=== PATIENT | male | born 1945 | race Caucasian/White ===

== ENCOUNTER 2025-05-26 13:27 | Observation (INO) | payer MEDICARE ==
[2025-05-26 13:49] LABS: Glucose,Whole Blood 114 mg/dL (70-110)
--- NOTE | 2025-05-26 13:57 | ED ---
General Adult HPI - General Chief complaint: Dizziness Stated complaint: Dizziness Time Seen by Provider: 05/26/25 13:30 Source: patient, RN/MD, EMS, RN notes reviewed, old records reviewed Mode of arrival: EMS - History of Present Illness Initial comments: This is a 79-year-old male who presents to the emergency department from [facility]. Patient states he was driving this morning and he felt lightheaded and he did not feel he should be driving so he spoke with his girlfriend and she brought him to the hospital. At [facility] they noted he was bradycardic into the 40s and feeling lightheaded with those heart rates. Patient fluctuated up into the 70s down into the low 40s according to the EMS that brought him in from [facility]. I spoke with the [place] ER physician prior to transfer. Patient currently is in the emergency department is asymptomatic - Related Data Allergies Allergy/AdvReac Type Severity Reaction Status Date / Time No Known Allergies Allergy Verified 05/26/25 13:32 Review of Systems ROS Statement: Those systems with pertinent positive or pertinent negative responses have been documented in the HPI. ROS Other: All systems not noted in ROS Statement are negative. Past Medical History Past Medical History: Diabetes Mellitus, Hypertension, Thyroid Disorder History of Any Multi-Drug Resistant Organisms: None Reported Additional Past Surgical History / Comment(s): thyroid removed Past Psychological History: No Psychological Hx Reported Smoking Status: Former smoker Past Alcohol Use History: Occasional Past Drug Use History: None Reported General Exam - General Exam Comments Initial Comments: GENERAL: Patient is well-developed and well-nourished. Patient is nontoxic and well- hydrated and is in no acute distress. ENT: Neck is soft and supple. No significant lymphadenopathy is noted. Oropharynx is clear. Moist mucous membranes. Neck has full range of motion without eliciting any pain. EYES: The sclera were anicteric and conjunctiva were pink and moist. Extraocular movements were intact and pupils were equal round and reactive to light. Eyelids were unremarkable. PULMONARY: Unlabored respirations. Good breath sounds bilaterally. No audible rales rhonchi or wheezing was noted. CARDIOVASCULAR: There is a regular rate and rhythm without any murmurs gallops or rubs. Patient was shortly thereafter had a heart rate in the 40s ABDOMEN: Soft and nontender with normal bowel sounds. SKIN: Skin is clear with no lesions or rashes and otherwise unremarkable. NEUROLOGIC: Patient is alert and oriented x3. Cranial nerves II through XII are grossly intact. Motor and sensory are also intact. Normal speech, volume and content. Symmetrical smile. MUSCULOSKELETAL: Normal extremities with adequate strength and full range of motion. LYMPHATICS: No significant lymphadenopathy is noted PSYCHIATRIC: Normal psychiatric evaluation. Course Vital Signs 05/26/25 13:28 Temperature 98.0 F Pulse Rate 48 L Respiratory 18 Rate Blood Pressure 154/105 O2 Sat by Pulse 97 Oximetry Medical Decision Making - Medical Decision Making EKG is interpreted by myself. EKG shows a sinus rhythm at a rate of 62 bpm it is a regular [place] interval is 176 QRS is 150 QT interval is 423 QTc is 427. Patient's EKG shows no ST segment elevation or depression. Was pt. sent in by a medical professional or institution (, KATELYN, DIRECTOR BUSINESS DEVELOPMENT, urgent care, hospital, or detention...) When possible be specific @ -No Did you speak to anyone other than the patient for history (EMS, parent, family, police, friend...)? What history was obtained from this source @ -No Did you review nursing and triage notes (agree or disagree)? Why? @ -I reviewed and agree with nursing and triage notes Were old charts reviewed (outside hosp., previous admission, EMS record, old EKG, old radiological studies, urgent care reports/EKG's, detention records)? Report findings @ -No old charts were reviewed Differential Diagnosis? @ -Differential Dizziness: Benign paroxysmal positional Vertigo, Meniere's disease, otitis media, acoustic neuroma, vertebrobasilar insufficiency, cerebellar stroke, encephalitis, hypovolemic, arrhythmia, coronary artery syndrome, anemia, this is not meant to be an all-inclusive list EKG interpreted by me (3pts min.). @ -As above X-rays interpreted by me (1pt min.). @ -Patient CT interpreted by me (1pt min.). @ -None done U/S interpreted by me (1pt. min.). @ -None done What testing was considered but not performed or refused? (CT, X-rays, U/S, labs)? Why? @ -None What meds were considered but not given or refused? Why? @ -None Did you discuss the management of the patient with other professionals (professionals i.e. Dr., PA, DIRECTOR BUSINESS DEVELOPMENT, lab, RT, psych nurse, health social work professor, apartment leasing manager, teacher, industrial relations officer, embedded case manager)? Give summary @ -I spoke with Dr. Munoz he agreed to admit the patient but the patient reported bitting orders Was smoking cessation discussed for >3mins.? @ -No Was critical care preformed (if so, how long)? @ -No Were there social determinants of health that impacted care today? How? (Homelessness, low income, unemployed, alcoholism, drug addiction, transportation, low edu. Level, literacy, decrease access to med. care, snf, rehab)? @ -No Was there de-escalation of care discussed even if they declined (Discuss DNR or withdrawal of care, Hospice)? DNR status @ -No What co-morbidities impacted this encounter? (DM, HTN, Smoking, COPD, CAD, Cancer, CVA, ARF, Chemo, Hep., AIDS, mental health diagnosis, sleep apnea, morbid obesity)? @ -None Was patient admitted / discharged? Hospital course, mention meds given and route, prescriptions, significant lab abnormalities, going to OR and other pertinent info. @ -Patient came in and was intermittently bradycardic into the 40s. Patient was asymptomatic throughout his ED stay. I spoke with Dr. Munoz he agreed to admit the patient I did write admitting orders and consult cardiology Undiagnosed new problem with uncertain prognosis? @ -No Drug Therapy requiring intensive monitoring for toxicity (Heparin, Nitro, Insulin, Cardizem)? @ -No Were any procedures done? @ -No Diagnosis/symptom? @ -Symptomatic bradycardia Acute, or Chronic, or Acute on Chronic? @ -Acute Uncomplicated (without systemic symptoms) or Complicated (systemic symptoms)? @ -Complicated Side effects of treatment? @ -No Exacerbation, Progression, or Severe Exacerbation? @ -No Poses a threat to life or bodily function? How? (Chest pain, USA, MA, pneumonia, PE, COPD, DKA, ARF, appy, cholecystitis, CVA, Diverticulitis, Homicidal, Suicidal, threat to staff... and all critical care pts) @ -Yes this can lead to poor perfusion and endorgan dysfunction Disposition Clinical Impression: Symptomatic bradycardia Disposition: ADMITTED IP TO THIS [facility] Referrals: Nonstaff,Physician [Primary Care Provider] - 1-2 days Time of Disposition: 14:00
[2025-05-26] MEDS ORDERED: NALOXONE 0.4 MG/ML 1 ML VIAL IV PRN (16:16)
[2025-05-26] MEDS ORDERED: ACETAMINOPHEN TAB 325 MG TAB PO PRN (16:16)
[2025-05-26] MEDS ORDERED: DEXTROSE 50% SYRINGE 50 ML IVP PRN ×2 (16:29)
[2025-05-26 16:44] LABS: Glucose,Whole Blood 167 mg/dL (70-110)
[2025-05-26] MEDS: INSULIN LISPRO (HumaLOG) 100 UNIT/ML 10 mL VL SQ SCH ×2 (16:51→18:39)
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
[2025-05-26 21:51] LABS: Glucose,Whole Blood 102 mg/dL (70-110)
[2025-05-26] MEDS: PRAVASTATIN SODIUM 80 MG TAB PO SCH (22:33)
[2025-05-26] MEDS: INSULIN GLARGINE (LANTUS) 100 UNIT/ML SYR SQ SCH (22:34)
[2025-05-26 23:48] LABS: Bilirubin,Urine Negative (Negative); Blood,Urine Negative (Negative); Color,Urine Colorless; Glucose,Urine (UA) Negative (Negative); Ketones,Urine Negative (Negative); Leukocyte Esterase,Urine Negative (Negative); Nitrite,Urine Negative (Negative); PH, Urine 5.0 (5.0-8.0); Protein,Urine Negative (Negative); Specific Gravity,Urine 1.010 (1.001-1.035); Urobilinogen,Urine <2.0 mg/dL (<2.0)
[2025-05-27] MEDS: LEVOTHYROXINE 75 MCG TAB PO SCH (06:35)
[2025-05-27 07:04] LABS: Basophils # (A) 0.04 10*3/uL (0.00-0.10); Basophils % (A) 0.6 %; Eosinophils # (A) 0.19 10*3/uL (0.04-0.35); Eosinophils % (A) 2.6 %; HCT 40.3 % (39.6-50.0); HGB 13.5 g/dL (13.0-17.0); Lymphocytes # (A) 1.86 10*3/uL (0.90-5.00); Lymphocytes % (A) 25.7 %; MCH 28.2 pg (27.0-32.0); MCHC 33.5 g/dL (32.0-37.0); MCV 84.3 fL (80.0-97.0); Monocytes # (A) 0.78 10*3/uL (0.20-1.00); Monocytes % (A) 10.8 %; Neutrophils # (A) 4.33 10*3/uL (1.80-7.70); Neutrophils % (A) 59.7 %; Platelet Count 256 10*3/uL (140-440); RBC 4.78 10*6/uL (4.40-5.60); RDW 13.6 % (11.5-14.5); WBC 7.24 10*3/uL (4.50-10.00)
[2025-05-27 07:26] LABS: Glucose,Whole Blood 97 mg/dL (70-110)
[2025-05-27 07:58] LABS: African American GFR (CKD) 61 (>60 ml/min/1.73 sqM); Anion Gap 7 mmol/L; Blood Urea Nitrogen 29 mg/dL (9-20); Calcium 9.7 mg/dL (8.4-10.2); Carbon Dioxide 24 mmol/L (22-30); Chloride 110 mmol/L (98-107); Glucose 102 mg/dL (74-99); Magnesium 2.1 mg/dL (1.6-2.3); Non-African American GFR(CKD) 53 (>60 ml/min/1.73 sqM); Potassium 4.7 mmol/L (3.5-5.1); Sodium 141 mmol/L (137-145)
[2025-05-27] MEDS: MULTIVITAMINS, THERA 1 EACH TAB PO SCH (08:40)
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
[2025-05-27 11:59] LABS: Glucose,Whole Blood 109 mg/dL (70-110)
--- NOTE | 2025-05-27 17:14 | P.PN ---
Subjective Progress Note Date: 05/27/25 Hospital Course: Mr. Connor is a 79 y/u M with PMHx of DMT2, HLD, COPD, emphysema, asthma and arthritis who presented to the ED with lightheadedness and dizziness. Pt states the lightheadedness began 1-2 months prior however today it occurred while he was sitting and driving which has not happened before, prompting him to come to the ED at [facility]. At [facility], pt was noted to be bradycardic into the 40s and then fluctuating back to the 70s and was transferred to [facility]. In ED, pt reports unsteady gait with the lightheadedness occurs and notes it will last 1-2 minutes. He notes sitting down/resting will help when symptoms occur. He states he will have lightheadedness approximately 5-10 times daily. ED findings from [place] show Troponin I <0.010, TSH 0.951, mag 2.05, phos 3.43, WBC 7.31, hgb 12.9, Na 141. K 4.9, BUN 33.9, creatinine 1.44. [place] CXR shows no focal consolidation, no large pleural effusion, no pneumothorax, elevation of right hemidiaphragm w/ associate compressive atelectasis, slightly hyperinflation bilaterally and increased vascular prominence. In [facility] ED, EKG showed sinus arrhythmia at 62 bpm, prolonged QRS, axis undetermined, RBBB. Possible sinus exit block. Cardiology consulted. Subjective: Patient seen and examined at bedside. No acute events overnight. Pt states he has not experienced any lightheadedness or dizziness last night or this morning. He states he did ambulate to the restroom without any symptoms. He denies CP, SOB, SAMS, palpitations. Pertinent positives and negatives as discussed above, a complete review of systems was performed and all other systems are negative. Vitals: Signs Reviewed Physical Exam: General: nontoxic, no distress, appears at stated age Derm: warm, dry, intact Head: atraumatic, normocephalic, symmetric Eyes: EOMI, anicteric sclera Mouth: no lip lesion, mucus membranes moist Cardiovascular: S1 S2 reg, no murmur, rubs, or gallops Lungs: CTA bilateral, no rhonchi, no rales, no accessory muscle use Abdominal: soft, non-tender to palpation, no appreciable organomegaly Extremities: no gross muscle atrophy, no edema, no contractures Neuro: Alert, Oriented, CNII-XII grossly intact, gait normal Psych: well appearing, appropriate affect Data Received Today: Pertinent Labs: CBC unremarkable. BUN 29, Cr 1.29, A1c 6.8, mag 2.1, TSH 0.937, troponin I <0.012. UA unremarkable. Imaging: Echo pending. Assessment and Plan: Bradycardia with presyncope, dizziness and lightheadedness - EKG reviewed: Sinus arrhythmia at 62 bpm, prolonged QRS, axis undetermined, RBBB. Possible sinus exit block - CXR ([facility]): No focal consolidation, no large pleural effusion, no pneumothorax. Elevation of right hemidiaphragm w/ associate compressive atelectasis. Slightly hyperinflation bilaterally. Per my read, also see prominent right ventricle, increased vascular prominence. - Cardiology following, recs appreciated. - Continue orthostatic vital signs - Continue fall precautions - Continue telemetry monitoring - Echo pending - Currently asymptomatic Elevated BUN/Cr - FRIEDA vs CKD - Pt does take Aleve at home for arthritis pain which is being held. Home lisinopril also being held. - UA unremarkable - Monitor CBC, BMP, mag Chronic: DMT2- low-dose SSI (AC-TID), lispro 12U PC-TID, lantus 50U sq HS [place]. A1c is 6.8, monitor for hypoglycemia HLD - home meds (pravastatin) Hypothyroidism - home meds (synthroid 150 mcg PO) DVT ppx: None at this time. Code status: No code Anticipated discharge place and time: Pending clinical course. Alexander Rodriguez DO PGY-1 IM Dictation was produced using [employer] dictation software. please excuse any grammatical, word or spelling errors. I have seen and evaluated the patient today. Discussed with the resident and agree with the residents finding and plan as documented in the resident's note. Changes highlighted in blue font. Objective - Vital Signs Vital signs: Vital Signs Temp 98.4 F 05/27/25 07:41 Pulse 70 05/27/25 15:32 Resp 18 05/27/25 15:32 BP 148/69 05/27/25 15:32 Pulse Ox 97 05/27/25 15:32 FiO2 Intake & Output 05/26/25 05/27/25 05/27/25 18:59 06:59 18:59 Weight 102.058 kg - Labs CBC & Chem 7: 05/27/25 06:43 05/27/25 06:43 Labs: Abnormal Lab Results - Last 24 Hours (Table) 05/27/25 05/27/25 05/27/25 Range/Units 06:43 06:43 06:43 MPV 9.3 L (9.5-12.2) fL Chloride 110 H (98-107) mmol/L BUN 29 H (9-20) mg/dL Creatinine 1.29 H (0.66-1.25) mg/dL Glucose 102 H (74-99) mg/dL Hemoglobin A1c 6.8 H (<=6.0) %
[2025-05-27 17:29] LABS: Glucose,Whole Blood 217 mg/dL (70-110)
[2025-05-27 18:40] LABS: Glucose,Whole Blood 242 mg/dL (70-110)
[2025-05-27 22:42] VITALS: TEMP 98.2
[2025-05-28 05:52] LABS: Glucose,Whole Blood 121 mg/dL (70-110)
[2025-05-28 08:14] LABS: Basophils # (A) 0.05 10*3/uL (0.00-0.10); Basophils % (A) 0.6 %; Eosinophils # (A) 0.19 10*3/uL (0.04-0.35); Eosinophils % (A) 2.3 %; HCT 44.9 % (39.6-50.0); HGB 14.7 g/dL (13.0-17.0); Lymphocytes # (A) 2.28 10*3/uL (0.90-5.00); Lymphocytes % (A) 27.6 %; MCH 28.3 pg (27.0-32.0); MCHC 32.7 g/dL (32.0-37.0); MCV 86.3 fL (80.0-97.0); Monocytes # (A) 0.91 10*3/uL (0.20-1.00); Monocytes % (A) 11.0 %; Neutrophils # (A) 4.76 10*3/uL (1.80-7.70); Neutrophils % (A) 57.8 %; Platelet Count 288 10*3/uL (140-440); RBC 5.20 10*6/uL (4.40-5.60); RDW 13.7 % (11.5-14.5); WBC 8.25 10*3/uL (4.50-10.00)
[2025-05-28 08:33] LABS: African American GFR (CKD) 52 (>60 ml/min/1.73 sqM); Anion Gap 8 mmol/L; Blood Urea Nitrogen 27 mg/dL (9-20); Calcium 9.9 mg/dL (8.4-10.2); Carbon Dioxide 28 mmol/L (22-30); Chloride 105 mmol/L (98-107); Glucose 130 mg/dL (74-99); Non-African American GFR(CKD) 45 (>60 ml/min/1.73 sqM); Potassium 4.9 mmol/L (3.5-5.1); Sodium 141 mmol/L (137-145)
[2025-05-28 08:49] VITALS: BP 136/80; PULSE 50; RESP 16
[2025-05-28 11:16] LABS: Glucose,Whole Blood 66 mg/dL (70-110)
[2025-05-28 11:40] LABS: Glucose,Whole Blood 95 mg/dL (70-110)
--- NOTE | 2025-05-28 14:22 | P.PN ---
Subjective Progress Note Date: 05/28/25 Reason for Consult (text): Symptomatic bradycardia History of present illness: This is a 79-year-old male with past medical history of diabetes mellitus type 2, hypertension, hyperlipidemia, hypothyroidism status post thyroidectomy. We have been asked to evaluate the patient for bradycardia symptomatic. Patient states he does not follow with a rn clinical and has not had a previous cardiac workup. He states that yesterday while he was driving he developed lightheadedness and he went home. His significant other made him go to [facility]. He states that his heart rate was recorded at 37. He states he has had some lightheadedness for the last couple months. He has been on a low carbohydrate diet and his blood sugars in the morning have been running 70 to 80s and his dietitian and physician thought the lightheadedness was due to low blood sugar. He denies chest pain chest pressure, no shortness of breath. Patient is concerned that he has a trip to [place] in 15 days. Patient has been seen in an emergency center waiting for a bed on the cardiac stepdown unit. Heart rates have been running in the 50s and 60s. Nursing staff is unable to locate the records that were sent with the patient from [place] and thus the EKG showing significant bradycardia is not able to be reviewed at this time. Dr. Devi discussed with the patient that he will need monitoring overnight to determine if there is a need for pacemaker implantation. -EKG: Sinus rhythm 62 bpm, right bundle branch block, brief pause. -Laboratory studies: CBC unremarkable. BUN 29 creatinine 1.29. Troponin negative x 2. Urinalysis negative. Magnesium 2.1. -Home cardiac medications: Lisinopril 5 mg at bedtime, pravastatin 80 mg at bedtime, also on levothyroxine 150 mcg daily. 05/28/2025 Patient seen and examined. EKGs from [place] have finally been obtained. Lowest heart rate was 44. Patient states that he was on a monitor in it did read something in the high 30s. He has been running mostly in the 50s here with lowest rate of 48. Patient denies lightheadedness or dizziness. No chest pain or chest pressure. Blood pressure 136/80, heart rate 50, pulse ox 96% on room air. Repeat blood work reveals BUN 27 creatinine 1.48. TSH 0.937. Patient has not had echocardiogram done and discussed with the patient that this can be done in the office on his follow-up. Physical examination: Gen: This is 79-year-old male in no acute distress VS: reviewed HEENT: Head is atraumatic, normocephalic. Pupils equal, round. Sclerae is anicteric. NECK: Supple. No JVD. LUNGS: Clear to auscultation. No wheezes or rhonchi. No intercostal retract ions. HEART: Regular rate and rhythm. No murmur. ABDOMEN: Soft No tenderness. EXTREMITIES: No pedal edema. No calf tenderness. NEUROLOGICAL: Patient is awake, alert and oriented x3. Assessment: Bradycardia rule out significant AV block Lightheadedness Diabetes mellitus type 2 insulin requiring Hypertension Hyperlipidemia Hypothyroidism status post thyroidectomy Plan: Continue patient's home cardiac medications Patient is not on any AV akash agents Cancel 2-D echocardiogram and Doppler study Obtain 14-day event monitor prior to discharge Patient is cleared for discharge from a cardiology perspective and will follow- up in the office with Dr. Devi in 3 weeks. Nurse practitioner note has been reviewed, I agree with documented findings and plan of care. Patient was seen and examined. Objective - Vital Signs Vital signs: Vital Signs Temp 98.2 F 05/28/25 08:47 Pulse 50 L 05/28/25 08:47 Resp 16 05/28/25 08:47 BP 136/80 05/28/25 08:47 Pulse Ox 96 05/28/25 08:47 FiO2 Intake & Output 05/27/25 05/28/25 05/28/25 18:59 06:59 18:59 Intake Total 360 Balance 360 Weight 99.5 kg Intake: Oral 360 Other: Voiding Method Toilet # Voids 1 - Labs CBC & Chem 7: 05/28/25 07:07 05/28/25 07:07 Labs: Abnormal Lab Results - Last 24 Hours (Table) 05/27/25 05/27/25 05/27/25 Range/Units 06:43 17:27 18:39 Immature Gran # (0.00-0.04) 10*3/uL BUN (9-20) mg/dL Creatinine (0.66-1.25) mg/dL Glucose (74-99) mg/dL POC Glucose (mg/dL) 217 H 242 H (70-110) mg/dL Hemoglobin A1c 6.8 H (<=6.0) % 05/28/25 05/28/25 05/28/25 Range/Units 05:50 07:07 07:07 Immature Gran # 0.06 H (0.00-0.04) 10*3/uL BUN 27 H (9-20) mg/dL Creatinine 1.48 H (0.66-1.25) mg/dL Glucose 130 H (74-99) mg/dL POC Glucose (mg/dL) 121 H (70-110) mg/dL Hemoglobin A1c (<=6.0) %
--- NOTE | 2025-05-28 14:28 | CDI ---
Documentation Clarification Form Date: 05/28/2025 02:24:07 PM From: Amisha Rzd RN, CCDS Phone: [phone] Admit Date: 05/26/2025 02:01:00 PM Patient Name: Tommy Connor Visit Number: [id number] Discharge Date: ATTENTION: The Clinical Documentation Specialists (CDI) and [facility] Coding Staff appreciate your assistance in clarifying documentation. Please respond to the clarification below the line at the bottom and electronically sign. The CDI & [facility] Coding staff will review the response and follow-up if needed. Please note: Queries are made part of the Legal Health Record. If you have any questions, please contact the author of this message via ITS. Doctor. Corey Drummond There is documentation of elevated BUN, Cr -FRIEDA vs CKD. Additional clarification is requested. History/Risk Factors: Diabetes Mellitus, Hypertension, Thyroid Disorder, Arthritis, COPD Clinical Indicators: 79-year-old male present with lightheadedness and dizziness. He takes Aleve at home for arthritis pain 7/2 BUN 29 Cr 1.29 GFR 53 7/3 BUN 27 Cr 1.30 GFR 45 Treatment: Hold Aleve Monitor renal function daily, per orders Can you please further clarify what is the most appropriate diagnosis for this patient? [ ] Acute Renal Failure [ x ] Chronic Renal Failure (Specify stage) [ ] Acute on Chronic renal failure (specify stage of CKD) [ ] Other, please specify [ ] Unable to determine [ ] CKD Stage 1 (GFR > 90) [ ] CKD Stage 2 (GFR 60-89) [ ] CKD Stage 3 (GFR 30-59) [ x ] CKD Stage 3a (GFR 45-59) [ ] CKD Stage 3b (GFR 30-44) (Template Last Revised: January 2021) MTDD
--- NOTE | 2025-05-28 17:02 | P.DS ---
Providers Date of admission: 05/26/25 14:01 Expected date of discharge: 05/28/25 Attending physician: Melissa Muonz MD Consults: 05/26/25 14:00 Consult Physician Urgent Consulting Provider: [facility] Consult Reason/Comments: Symptomatic bradycardia Do you want consulting provider notified?: Yes Primary care physician: Physician Nonstaff Hospital Course: Discharge Diagnosis: Symptomatic Bradycardia CKD DMT2 HLD Hypothyroidism Hospital Course: Mr. Connor is a 79 y/u M with PMHx of DMT2, HLD, COPD, emphysema, asthma and arthritis who presented to the ED with lightheadedness and dizziness. Pt states the lightheadedness began 1-2 months prior however today it occurred while he was sitting and driving which has not happened before, prompting him to come to the ED at [facility]. At [facility], pt was noted to be bradycardic into the 40s and then fluctuating back to the 70s and was transferred to [facility]. In ED, pt reports unsteady gait with the lightheadedness occurs and notes it will last 1-2 minutes. He notes sitting down/resting will help when symptoms occur. He states he will have lightheadedness approximately 5-10 times daily. ED findings from [place] show Troponin I <0.010, TSH 0.951, mag 2.05, phos 3.43, WBC 7.31, hgb 12.9, Na 141. K 4.9, BUN 33.9, creatinine 1.44. [place] CXR shows no focal consolidation, no large pleural effusion, no pneumothorax, elevation of right hemidiaphragm w/ associate compressive atelectasis, slightly hyperinflation bilaterally and increased vascular prominence. In [facility] ED, EKG showed sinus arrhythmia at 62 bpm, prolonged QRS, axis undetermined, RBBB. Possible sinus exit block. While admitted, pt experienced no dizziness or lightheadedness and heart rate stayed in the 60s. Cardiology consulted and started on a 14-day event monitor. Pt to follow-up with cardiology (Dr. Devi) in 3 weeks and PCP in 1-2 days. Patient seen and examined at bedside. Pt is stable for discharge. Vital signs reviewed and stable. Physical examination: Vital signs reviewed General: non toxic, no distress, appears at stated age, normal weight Derm: no unusual rashes/lesions, warm Head: atraumatic, normocephalic, symmetric Eyes: EOMI, anicteric sclera, pupils equal round reactive to light ENT: Nose and ears atraumatic Mouth: no lip lesion, mucus membranes moist Cardiovascular: S1S2 reg, no murmur, positive dorsalis pedis pulse bilateral, no edema Lungs: CTA bilateral, no rhonchi, no rales, no accessory muscle use Abdominal: soft, nontender to palpation, no guarding Ext: muscle strength 5 out of 5 in all 4 extremities grossly, no gross muscle atrophy, right knee in brace Neuro: CN II-XI grossly intact, no gross focal neuro deficits Psych: Alert, oriented to person, place, and time A total of greater than 30 minutes of time were spent preparing this complex discharge summary. Patient was discharged on 05/28/2025 at 1241. Alexander Rodriguez DO PGY-1 IM Dictation was produced using [employer] dictation software. please excuse any grammatical, word or spelling errors. I have seen and evaluated the patient today. Discussed with the resident and agree with the residents finding and plan as documented in the resident's note. Changes highlighted in blue font. Patient Condition at Discharge: Stable Plan - Discharge Summary New Discharge Prescriptions: Continue Pravastatin Sodium [Pravachol] 80 mg PO HS Insulin Glargine-Yfgn 50 units SQ HS metFORMIN HCL 1,000 mg PO BID Levothyroxine Sodium 150 mcg PO DAILY Dulaglutide [Trulicity] 4.5 mg SQ WE Vitamin D3 Chewable(Unknown Dose) 5 tab PO DAILY Naproxen Sodium [Aleve] 220 mg PO BID Multivitamins, Thera [Multivitamin (formulary)] 1 tab PO DAILY Insulin Lispro [Admelog Solostar] 12 units SQ PC-TID lisinopriL [Zestril] 5 mg PO HS Turmeric(Unknown Dose) 1 tab PO BID Fish Oil(Unknown Dose) 1 cap PO DAILY Beet Chews(Unknown Dose) 2 tab PO DAILY Discharge Medication List Beet Chews(Unknown Dose) 2 tab PO DAILY 05/26/25 [History] Dulaglutide [Trulicity] 4.5 mg SQ WE 05/26/25 [History] Fish Oil(Unknown Dose) 1 cap PO DAILY 05/26/25 [History] Insulin Glargine-Yfgn 50 units SQ HS 05/26/25 [History] Insulin Lispro [Admelog Solostar] 12 units SQ PC-TID 05/26/25 [History] Levothyroxine Sodium 150 mcg PO DAILY 05/26/25 [History] Multivitamins, Thera [Multivitamin (formulary)] 1 tab PO DAILY 05/26/25 [History] Naproxen Sodium [Aleve] 220 mg PO BID 05/26/25 [History] Pravastatin Sodium [Pravachol] 80 mg PO HS 05/26/25 [History] Turmeric(Unknown Dose) 1 tab PO BID 05/26/25 [History] Vitamin D3 Chewable(Unknown Dose) 5 tab PO DAILY 05/26/25 [History] lisinopriL [Zestril] 5 mg PO HS 05/26/25 [History] metFORMIN HCL 1,000 mg PO BID 05/26/25 [History] Follow up Appointment(s)/Referral(s): Molina Devi MD [STAFF PHYSICIAN] - 3 Weeks (Patient to make appoitment ) [facility]ultarogelioPhysician [Primary Care Provider] - 1-2 days (Patient to make appointment ) Patient Instructions/Handouts: Bradycardia (DC) Discharge Disposition: HOME SELF-CARE
== END 2025-05-28 14:26 | disposition home or self-care (01) ==
LOC: EC 13:27 → INTOOBSV 14:01 → 3SCARD 14:01
PROVIDERS: ADMIT Internal Medicine; ATTEND Internal Medicine
DX: R00.1 Bradycardia, unspecified (principal); R55 Syncope and collapse; I12.9 Hypertensive chronic kidney disease with stage 1 through stage 4 chronic kidney disease, or unspecified chronic kidney disease; N18.9 Chronic kidney disease, unspecified; E11.22 Type 2 diabetes mellitus with diabetic chronic kidney disease; E89.0 Postprocedural hypothyroidism; E78.5 Hyperlipidemia, unspecified; J44.89 Other specified chronic obstructive pulmonary disease; R79.89 Other specified abnormal findings of blood chemistry; Z87.891 Personal history of nicotine dependence; Z79.4 Long term (current) use of insulin; Z79.84 Long term (current) use of oral hypoglycemic drugs; Z79.85 Long-term (current) use of injectable non-insulin antidiabetic drugs; Z79.890 Hormone replacement therapy; Z79.899 Other long term (current) drug therapy
CPT/HCPCS: 99285; 36415; 93005; 93270; 80048 ×2; 84443; 83735; 84484 ×2; 85025 ×2; 81003; 83036; G0378 ×3